=== PATIENT | male | born 1985 | race Asian ===

== ENCOUNTER 2025-10-18 08:45 | Emergency (ER) | payer BC, SELFPAY ==
--- NOTE | 2025-10-18 09:52 | ED.GENMED ---
History of Present Illness
<Galilea Mata PA-C - Last Filed: 10/19/25 01:11>
General
Chief Complaint: Abdominal Symptoms
Source: patient
Exam Limitations: none
Time Seen by Provider: 10/18/25 09:24
Nursing documentation reviewed up to this point in time: agreed with
History of Present Illness
History of Present Illness:
Patient is a 40-year-old male with history asthma who presents emergency department for evaluation of abdominal bloating. Patient states that he has been experiencing persistent abdominal bloating over the past many weeks, however feels it has
began to worsen over the past 2 weeks. He feels that bloating is worse after eating. He states that yesterday evening he noticed a 'hard spot' in his upper abdomen. He contacted his primary care provider this morning however they were unable to
schedule an office visit in the near future and prompted visit to the emergency department.
Patient denies any fever or chills. No nausea or vomiting. He states he deals with low appetite and constipation at baseline although has not noticed any acute worsening in the symptoms. He denies any chest pain or shortness of breath.
Patient states that he recently started taking Humira for suspected psoriatic arthritis. He also recently began oral minoxidil to treat hair loss.
Past History
<Galilea Mata PA-C - Last Filed: 10/19/25 01:11>
Past History
ED Past Medical History: Asthma
ED Past Surgical History: Orthopedic
Social History
Drug: None
Review of Systems
<Galilea Mata PA-C - Last Filed: 10/19/25 01:11>
Review of Systems
Allergies reviewed?: Yes
All Other Systems: ROS reviewed and negative except as documented in HPI and ROS
Phy Exam
<Galilea Mata PA-C - Last Filed: 10/19/25 01:11>
Physical Exam
Physical Exam:
Vitals: Patient's vital signs are stable. Afebrile.
General: Patient is well appearing, no acute distress
Skin: Warm and dry, no rashes or lesions
Head: Normocephalic, atraumatic
Eyes: Sclera nonicteric.
Throat: Protecting airway
Neck: Normal ROM, no cervical spine tenderness, no meningismus
Cardiac: Regular rate and rhythm, no murmurs. Prominent xiphoid process. No erythema, induration, or fluctuance
Pulm: Normal respiratory effort. Lungs clear bilaterally
Abdomen: Abdomen soft. Mild discomfort in epigastric/right upper quadrant. No rebound or guarding.
Extremities: No evidence of cyanosis or edema. Distal pulses intact
Neuro: AAOx3. Grossly intact.
Psychiatric: Normal affect.
Course
<Galilea Mata PA-C - Last Filed: 10/19/25 01:11>
Orders/Labs/Results
Orders:
Orders
10/18/25 09:51
US Abdomen Complete/Upper Urgent
Comment:
Reason For Exam: Bloating, upper abdominal pain
10/18/25 11:28
Complete Blood Count/With Diff Urgent
Comprehensive Metabolic Panel Urgent
Lipase Urgent
10/18/25 12:28
CR Chest - 2 Views Urgent
Comment:
Reason For Exam: bony prominance lower chest
Abnormal Lab Results
10/18/25
11:28
Glucose 100 H mg/dl
(70-99)
Total Protein 9.6 H g/dl
(6.3-8.2)
10/18/25 11:28
10/18/25 11:28
Vital Signs
Initial and Last Documented VS:
Initial Vital Signs
Temp Pulse Resp Pulse Ox
97.5 F 60 16 98
10/18/25 08:46 10/18/25 08:46 10/18/25 08:46 10/18/25 08:46
Last Documented Vital Signs
Temp Pulse Resp BP Pulse Ox
97.5 F 64 16 125/72 95
10/18/25 08:46 10/18/25 13:24 10/18/25 13:24 10/18/25 13:24 10/18/25 13:24
<Juan Lemus DO - Last Filed: 10/18/25 14:34>
Orders/Labs/Results
Orders:
Orders
10/18/25 09:51
US Abdomen Complete/Upper Urgent
Comment:
Reason For Exam: Bloating, upper abdominal pain
10/18/25 11:28
Complete Blood Count/With Diff Urgent
Comprehensive Metabolic Panel Urgent
Lipase Urgent
10/18/25 12:28
CR Chest - 2 Views Urgent
Comment:
Reason For Exam: bony prominance lower chest
Abnormal Lab Results
10/18/25
11:28
Glucose 100 H mg/dl
(70-99)
Total Protein 9.6 H g/dl
(6.3-8.2)
10/18/25 11:28
10/18/25 11:28
Vital Signs
Initial and Last Documented VS:
Initial Vital Signs
Temp Pulse Resp Pulse Ox
97.5 F 60 16 98
10/18/25 08:46 10/18/25 08:46 10/18/25 08:46 10/18/25 08:46
Last Documented Vital Signs
Temp Pulse Resp BP Pulse Ox
97.5 F 64 16 125/72 95
10/18/25 08:46 10/18/25 13:24 10/18/25 13:24 10/18/25 13:24 10/18/25 13:24
<Galilea Mata PA-C - Last Filed: 10/19/25 01:11>
MDM/Problems Addressed
Differential Diagnosis Includes:
Not limited to: biliary colic, acute cholecystitis, GERD, gastritis, pancreatitis, medication side effect, etc
MDM/Problems Addressed:
40-year-old male with a few weeks of abdominal bloating and belching. Also with area of concern in epigastric region which he believes is new. He has had no associated fever, vomiting, anorexia. No changes in bowel habits.
Vitals stable. On exam, patient very well appearing, in no distress. He�s nontoxic appearing. Abdomen soft and non-distended.No areas of focal tenderness. Patient does have somewhat of a more prominent xiphoid process which is what I suspect patient
is feeling at his lower chest border. There is no palpable abnormality. There�s no overlying erythema or warmth of skin. No areas of fluctuance or induration.
Lab work unremarkable in emergency department. Abdominal US without abnormalities noted of gallbladder or liver. Chest x-ray without bony abnormalities.
Workup negative. Possible component of GERD/gastritis. Will place patient on two week course of PPI and advised primary care/G.I. follow-up. Return precautions discussed.
Chronic conditions affecting care:
N/A
Acute Exacerbation and/or Progression of Chronic Illness:
N/A
<Galilea Mata PA-C - Last Filed: 10/19/25 01:11>
*Radiology
Radiology exam reviewed: radiology read reviewed
*Pulse Oximetry
SaO2: 98
Oxygen Mode of Delivery: Room air
Patient hypoxic: no
*EKG
Interpreted by ED Provider?: NA
*Barrel Racer Interpretation
Rate: Barrel Racer- N/A
*Critical Care Note
Total Time (30-74mins, 75-104mins- exclusive of procedures): Not Applicable
ED Attending Note
<Galilea Mata PA-C - Last Filed: 10/19/25 01:11>
-
Portions of this chart may have been created with voice recognition software.� Occasional wrong word or��sound alike� substitutions may have occurred due to the inherent limitations of voice recognition software.
<Juan Lemus DO - Last Filed: 10/18/25 14:34>
ED Attending Note
Patient seen and examined by attending physician: Yes
I performed the substantive portion of visit, reviewed & personally made and approve the management plan that is documented in note by myself or LYNETTE.: Yes
ED Attending Note:
38-year-old male who has had some bloating which is not terribly uncommon for him was recently started on CPAP presents for concerns about a mass just below his. Patient denies fevers. No chest pain. No pain at the site. Exam: Clearly palpable
xiphoid process. No clinical concern for any other subcutaneous masses. Abdomen benign and soft. Assessment and plan: Okay for discharge. ED workup negative
Discharge Plan
Departure
Patient Disposition: Home (Routine Discharge)
Date of Disposition: 10/18/25
Time of Disposition: 14:22
Patient with high blood pressure during this ER visit?: No
Condition: Good
Discharge Problem:
Abdominal bloating
Instructions: Gas and bloating
Prescriptions:
New
pantoprazole 40 mg tablet,delayed release (DR/EC)
40 mg PO DAILY 14 Days Qty: 14 0RF
No Action
dicyclomine 10 MG capsule
20 mg PO Q6HPRN PRN (Reason: abdominal pain/spasm) Qty: 20 0RF
Referrals:
Robyn Coats MD [Active, Gastroenterology] - Follow up in 5-7 days
Rickey Fisher DO [Family Provider, Family Practice] - Follow up in 1 week
Activity Restrictions/Additional Instructions:
RETURN TO THE EMERGENCY DEPARTMENT ANY FEVER, CHILLS, WORSENING ABDOMINAL PAIN, CHEST PAIN OR SHORTNESS OF BREATH, INTRACTABLE VOMITING, WORSENING OF CURRENT SYMPTOMS, OR ANY OTHER CONCERNS
-Please take your medications as prescribed. A prescription for pantoprazole is been sent to your pharmacy which you can take daily for the next 2 weeks. If symptoms persist and/or worsen - you may require an endoscopy. The name for a GI
physician is a provider for you above.
- I would recommend a bland diet. Please stay well-hydrated
Monitor your symptoms closely return to the emergency department with any acute worsening/new symptoms or any other concerns
Interventions
Interventions:
*Risk Screen - Suicide Last Done: 10/18/25 08:46
*General Assessment Last Done: 10/18/25 11:30
*Neglect/Abuse Screening Last Done: 10/18/25 08:46
[facility] Risk Assessment Tool Last Done: 10/18/25 10:00
*Nursing Disposition Last Done: 10/18/25 14:30
OI-Xsneli-Rqxtkfttwn Assessment Last Done: 10/18/25 11:30
Discharge Date and Time
Discharge Date/Time: 10/18/25 14:30
Print Language: MARSHALLESE
[2025-10-18 11:54] LABS: Hematocrit 48.1 % (39.0-52.0); Hemoglobin 16.5 g/dL (13.0-18.0); Mean Corp Hgb Conc. 34.3 g/dL (33.0-37.0); Mean Corpuscular Volume 87.6 fL (80.0-94.0); Nucleated Red Blood Cells % 0 % (-); Platelet Count 280 10^3/uL (130-400); Red Cell Dist. Width 13.6 % (11.5-14.5)
[2025-10-18 12:03] LABS: ALT (SGPT) 25 U/L (0-50); AST (SGOT) 27 U/L (17-59); Albumin 5.0 g/dl (3.5-5.0); Alkaline Phosphatase 87 U/L (38-126); Blood Urea Nitrogen 16 mg/dl (9-20); Calcium 9.6 mg/dl (8.4-10.2); Carbon Dioxide 28 mmol/L (22-30); Chloride 103 mmol/L (98-107); Glucose 100 mg/dl (70-99); Lipase 95 U/L (23-300); Potassium 4.7 mmol/L (3.5-5.1); Sodium 137 mmol/L (135-145); Total Protein 9.6 g/dl (6.3-8.2); eGFR > 60.00
[2025-10-18 13:24] VITALS: BP 125/72
== END 2025-10-18 14:30 | disposition home or self-care (01) ==
LOC: EMR 08:45
PROVIDERS: Physician Assistant; EMERGENCY PHYSICIAN Emergency Medicine; FAMILY PHYSICIAN Family Medicine
DX: R14.0 Abdominal distension (gaseous) (principal); J45.909 Unspecified asthma, uncomplicated
CPT/HCPCS: 99284; 71046; 76700; 80053; 83690; 85025